=== PATIENT | male | born 1965 | race African-American/Black ===

== ENCOUNTER 2021-07-16 17:06 | Inpatient (IN) | payer OTHER ==
[2021-07-16] MEDS ORDERED: MAGNESIUM HYDROX 2400MG/30ML ORAL SUSPENSION 30 ML CUP PO PRN (20:43)
[2021-07-16] MEDS ORDERED: hydrOXYzine PAMOATE 25 MG CAPSULE (FP) PO PRN (20:43)
[2021-07-16] MEDS ORDERED: IBUPROFEN 400 MG TABLET (FP) PO PRN (20:43)
[2021-07-16] MEDS ORDERED: METHOCARBAMOL 500 MG TABLET PO PRN (20:43)
[2021-07-16] MEDS ORDERED: ONDANSETRON *ODT* 4 MG TABLET SL PRN (20:43)
[2021-07-16] MEDS ORDERED: MAGNESIUM CITRATE 300 ML BOTTLE PO PRN (20:43)
[2021-07-16] MEDS ORDERED: MENTHOL/PHENOL 1 EACH UD MM PRN (20:43)
[2021-07-16] MEDS ORDERED: DICYCLOMINE HCL 10 MG CAPSULE PO PRN (20:43)
[2021-07-16] MEDS ORDERED: BISMUTH SUBSALICYLATE 524 MG/30 ML PO PRN (20:43)
[2021-07-16] MEDS ORDERED: ACETAMINOPHEN 325 MG TABLET (FP) PO PRN ×2 (20:43)
[2021-07-16] MEDS ORDERED: guaiFENesin 200 MG/10 ML 10 ML UNIT-DOSE CUPS PO PRN (20:43)
[2021-07-16] MEDS ORDERED: P-EPHED 60MG/TRIPROLIDI 2.5MG TABLET PO PRN (20:43)
[2021-07-16] MEDS ORDERED: MAG HYDROX/AL HYDROX/SIMETH 30 ML UNIT-DOSE CUP PO PRN (20:43)
[2021-07-16 22:39] VITALS: BMI 41.5
[2021-07-17] MEDS ORDERED: INSULIN (NOVOLOG) ASPART 100 UNITS/ML 10ML VIAL SQ ONE (00:51)
[2021-07-17] MEDS: THIAMINE HCL 100 MG TABLET (FP) PO SCH ×2 (01:51→21:37)
[2021-07-17] MEDS: MELATONIN 5 MG TABLETS PO SCH ×2 (01:51→21:37)
[2021-07-17] MEDS ORDERED: PIOGLITAZONE HCL 15 MG TABLET PO SCH (07:00)
[2021-07-17] MEDS: INSULIN (NOVOLOG) ASPART 100 UNITS/ML 10ML VIAL SQ SCH ×4 (08:05→21:35)
[2021-07-17] MEDS: PRENATAL VITAMINS W/ FOLIC ACID TABLET (FP) PO SCH (10:19)
[2021-07-17 11:18] LABS: ALBUMIN 2.7 g/dl (3.4-5.0)
[2021-07-17 11:19] LABS: BLOOD UREA NITROGEN 9.4 mg/dL (7-18)
[2021-07-17 11:22] LABS: CREATININE 1.2 mg/dL (0.55-1.3)
[2021-07-17 11:24] LABS: BILIRUBIN,TOTAL 0.4 mg/dL (0.2-1)
[2021-07-17 11:34] LABS: HEMATOCRIT 34.1 % (35.4-49); HEMOGLOBIN 11.3 GM/dL (11.7-16.9); MCH 24.7 pg (25.7-33.7); MCHC 33.2 g/dl (32.0-35.9); MEAN CELL VOLUME 74.4 fl (80-96); PLATELET COUNT 196 10^3/uL (134-434); RBC 4.59 M/mm3 (4.00-5.60); RDW 15.7 % (11.9-15.9); WHITE BLOOD COUNT 3.7 K/mm3 (4.0-10.0)
[2021-07-17] MEDS ORDERED: INSULIN (NOVOLOG) ASPART 100 UNITS/ML 10ML VIAL ONE ×2 (17:15→21:35)
[2021-07-17 17:17] LABS: HIV INTERPRETATION NEGATIVE (NEGATIVE)
[2021-07-17] MEDS: SERTRALINE HCL 25 MG TABLET (FP) PO SCH (21:37)
[2021-07-17] MEDS ORDERED: POTASSIUM CHLORIDE TABS 20 MEQ TABLET.ER (FP) PO ONE (22:23)
[2021-07-18] MEDS: INSULIN (NOVOLOG) ASPART 100 UNITS/ML 10ML VIAL SQ SCH ×4 (06:30→21:10)
[2021-07-18] MEDS: PIOGLITAZONE HCL 15 MG PO SCH (06:31)
[2021-07-18] MEDS: PRENATAL VITAMINS W/ FOLIC ACID TABLET (FP) PO SCH (09:47)
[2021-07-18] MEDS: PATIENT'S OWN MEDICATION (NON-FORMULARY) (Dulaglutide [Trulicity] 0.75 MG/0.5 ML Pen.Injct SQ SCH (11:58)
[2021-07-18 12:23] LABS: BLOOD UREA NITROGEN 7.2 mg/dL (7-18)
[2021-07-18 12:24] LABS: BILIRUBIN,TOTAL 0.4 mg/dL (0.2-1)
[2021-07-18 12:25] LABS: ALBUMIN 2.7 g/dl (3.4-5.0); CALCIUM 9.2 mg/dL (8.5-10.1); CREATININE 1.1 mg/dL (0.55-1.3)
[2021-07-18] MEDS ORDERED: INSULIN SLIDING SCALE (NOVOLOG) 1 VIAL SQ ONE ×2 (16:51→21:10)
[2021-07-18] MEDS: SERTRALINE HCL 25 MG TABLET (FP) PO SCH (21:08)
[2021-07-18] MEDS: MELATONIN 5 MG TABLETS PO SCH (21:08)
[2021-07-18] MEDS: THIAMINE HCL 100 MG TABLET (FP) PO SCH (21:08)
[2021-07-19] MEDS: PIOGLITAZONE HCL 15 MG PO SCH (06:21)
[2021-07-19] MEDS: INSULIN (NOVOLOG) ASPART 100 UNITS/ML 10ML VIAL SQ SCH ×4 (06:21→21:35)
[2021-07-19] MEDS: PRENATAL VITAMINS W/ FOLIC ACID TABLET (FP) PO SCH (09:43)
[2021-07-19] MEDS ORDERED: INSULIN SLIDING SCALE (NOVOLOG) 1 VIAL SQ ONE (11:58)
[2021-07-19] MEDS: MELATONIN 5 MG TABLETS PO SCH (21:30)
[2021-07-19] MEDS: THIAMINE HCL 100 MG TABLET (FP) PO SCH (21:30)
[2021-07-19] MEDS: SERTRALINE HCL 25 MG TABLET (FP) PO SCH (21:31)
[2021-07-20] MEDS: PIOGLITAZONE HCL 15 MG PO SCH (06:17)
[2021-07-20] MEDS ORDERED: INSULIN (NOVOLOG) ASPART 100 UNITS/ML 10ML VIAL ONE ×2 (07:31→11:27)
[2021-07-20] MEDS: INSULIN (NOVOLOG) ASPART 100 UNITS/ML 10ML VIAL SQ SCH ×4 (07:51→21:48)
[2021-07-20] MEDS: PRENATAL VITAMINS W/ FOLIC ACID TABLET (FP) PO SCH (10:09)
[2021-07-20] MEDS: MELATONIN 5 MG TABLETS PO SCH (21:46)
[2021-07-20] MEDS: THIAMINE HCL 100 MG TABLET (FP) PO SCH (21:46)
[2021-07-20] MEDS: SERTRALINE HCL 25 MG TABLET (FP) PO SCH (21:46)
[2021-07-21] MEDS: INSULIN (NOVOLOG) ASPART 100 UNITS/ML 10ML VIAL SQ SCH ×4 (06:51→21:27)
[2021-07-21] MEDS: PIOGLITAZONE HCL 15 MG PO SCH (06:52)
[2021-07-21] MEDS ORDERED: INSULIN (NOVOLOG) ASPART 100 UNITS/ML 10ML VIAL ONE ×3 (07:23→22:27)
[2021-07-21] MEDS: PRENATAL VITAMINS W/ FOLIC ACID TABLET (FP) PO SCH (10:10)
[2021-07-21] MEDS: SERTRALINE HCL 25 MG TABLET (FP) PO SCH (21:27)
[2021-07-21] MEDS: MELATONIN 5 MG TABLETS PO SCH (21:27)
[2021-07-21] MEDS: THIAMINE HCL 100 MG TABLET (FP) PO SCH (21:27)
[2021-07-22] MEDS ORDERED: INSULIN (NOVOLOG) ASPART 100 UNITS/ML 10ML VIAL ONE ×3 (05:12→11:57)
[2021-07-22] MEDS: INSULIN (NOVOLOG) ASPART 100 UNITS/ML 10ML VIAL SQ SCH ×4 (06:29→21:01)
[2021-07-22] MEDS: PIOGLITAZONE HCL 15 MG PO SCH (06:30)
[2021-07-22] MEDS: PRENATAL VITAMINS W/ FOLIC ACID TABLET (FP) PO SCH (09:54)
[2021-07-22] MEDS: MELATONIN 5 MG TABLETS PO SCH (21:03)
[2021-07-22] MEDS: THIAMINE HCL 100 MG TABLET (FP) PO SCH (21:03)
[2021-07-22] MEDS: SERTRALINE HCL 25 MG TABLET (FP) PO SCH (21:03)
[2021-07-23] MEDS: INSULIN (NOVOLOG) ASPART 100 UNITS/ML 10ML VIAL SQ SCH ×4 (06:33→21:15)
[2021-07-23] MEDS: PIOGLITAZONE HCL 15 MG PO SCH (06:34)
[2021-07-23] MEDS: PRENATAL VITAMINS W/ FOLIC ACID TABLET (FP) PO SCH (10:07)
[2021-07-23] MEDS ORDERED: INSULIN (NOVOLOG) ASPART 100 UNITS/ML 10ML VIAL ONE (11:56)
[2021-07-23] MEDS: THIAMINE HCL 100 MG TABLET (FP) PO SCH (21:15)
[2021-07-23] MEDS: MELATONIN 5 MG TABLETS PO SCH (21:15)
[2021-07-23] MEDS: SERTRALINE HCL 25 MG TABLET (FP) PO SCH (21:16)
[2021-07-24] MEDS ORDERED: INSULIN (NOVOLOG) ASPART 100 UNITS/ML 10ML VIAL ONE ×2 (00:18→07:04)
[2021-07-24] MEDS: INSULIN (NOVOLOG) ASPART 100 UNITS/ML 10ML VIAL SQ SCH ×4 (06:59→21:16)
[2021-07-24] MEDS: PIOGLITAZONE HCL 15 MG PO SCH (07:00)
[2021-07-24] MEDS: PRENATAL VITAMINS W/ FOLIC ACID TABLET (FP) PO SCH (10:30)
[2021-07-24] MEDS: MELATONIN 5 MG TABLETS PO SCH (21:17)
[2021-07-24] MEDS: THIAMINE HCL 100 MG TABLET (FP) PO SCH (21:17)
[2021-07-24] MEDS: SERTRALINE HCL 25 MG TABLET (FP) PO SCH (21:18)
[2021-07-25] MEDS: PIOGLITAZONE HCL 15 MG PO SCH (06:44)
[2021-07-25] MEDS ORDERED: INSULIN (NOVOLOG) ASPART 100 UNITS/ML 10ML VIAL ONE ×2 (06:44→16:54)
[2021-07-25] MEDS: INSULIN (NOVOLOG) ASPART 100 UNITS/ML 10ML VIAL SQ SCH ×4 (07:35→21:49)
[2021-07-25] MEDS: PRENATAL VITAMINS W/ FOLIC ACID TABLET (FP) PO SCH (09:58)
[2021-07-25] MEDS: PATIENT'S OWN MEDICATION (NON-FORMULARY) (Dulaglutide [Trulicity] 0.75 MG/0.5 ML Pen.Injct SQ SCH (09:59)
[2021-07-25] MEDS: MELATONIN 5 MG TABLETS PO SCH (21:49)
[2021-07-25] MEDS: THIAMINE HCL 100 MG TABLET (FP) PO SCH (21:49)
[2021-07-25] MEDS ORDERED: SERTRALINE HCL 50 MG TABLET (FP) PO SCH (22:59)
[2021-07-25] MEDS: SERTRALINE HCL 25 MG TABLET (FP) PO SCH (23:11)
[2021-07-25] MEDS: SERTRALINE HCL 50 MG TABLET (FP) PO SCH (23:14)
[2021-07-26] MEDS ORDERED: INSULIN (NOVOLOG) ASPART 100 UNITS/ML 10ML VIAL ONE (07:02)
[2021-07-26] MEDS: PIOGLITAZONE HCL 15 MG PO SCH (07:03)
[2021-07-26] MEDS: INSULIN (NOVOLOG) ASPART 100 UNITS/ML 10ML VIAL SQ SCH ×4 (07:04→21:29)
[2021-07-26] MEDS: PRENATAL VITAMINS W/ FOLIC ACID TABLET (FP) PO SCH (10:35)
[2021-07-26] MEDS: THIAMINE HCL 100 MG TABLET (FP) PO SCH (21:31)
[2021-07-26] MEDS: MELATONIN 5 MG TABLETS PO SCH (21:31)
[2021-07-26] MEDS: SERTRALINE HCL 50 MG TABLET (FP) PO SCH (21:31)
[2021-07-27] MEDS ORDERED: INSULIN (NOVOLOG) ASPART 100 UNITS/ML 10ML VIAL ONE (06:35)
[2021-07-27] MEDS: INSULIN (NOVOLOG) ASPART 100 UNITS/ML 10ML VIAL SQ SCH ×4 (06:36→21:17)
[2021-07-27] MEDS: PIOGLITAZONE HCL 15 MG PO SCH (06:37)
[2021-07-27] MEDS: PRENATAL VITAMINS W/ FOLIC ACID TABLET (FP) PO SCH (10:21)
[2021-07-27] MEDS: THIAMINE HCL 100 MG TABLET (FP) PO SCH (21:16)
[2021-07-27] MEDS: SERTRALINE HCL 50 MG TABLET (FP) PO SCH (21:16)
[2021-07-27] MEDS: MELATONIN 5 MG TABLETS PO SCH (21:16)
[2021-07-28] MEDS: PIOGLITAZONE HCL 15 MG PO SCH (06:09)
[2021-07-28] MEDS: INSULIN (NOVOLOG) ASPART 100 UNITS/ML 10ML VIAL SQ SCH ×4 (07:41→21:24)
[2021-07-28] MEDS: PRENATAL VITAMINS W/ FOLIC ACID TABLET (FP) PO SCH (11:32)
[2021-07-28] MEDS ORDERED: INSULIN (NOVOLOG) ASPART 100 UNITS/ML 10ML VIAL ONE (12:30)
[2021-07-28] MEDS: MELATONIN 5 MG TABLETS PO SCH (21:20)
[2021-07-28] MEDS: THIAMINE HCL 100 MG TABLET (FP) PO SCH (21:21)
[2021-07-28] MEDS: SERTRALINE HCL 50 MG TABLET (FP) PO SCH (21:23)
[2021-07-29] MEDS: INSULIN (NOVOLOG) ASPART 100 UNITS/ML 10ML VIAL SQ SCH ×4 (06:58→21:05)
[2021-07-29] MEDS: PIOGLITAZONE HCL 15 MG PO SCH (08:26)
[2021-07-29] MEDS: PRENATAL VITAMINS W/ FOLIC ACID TABLET (FP) PO SCH (09:31)
[2021-07-29] MEDS: THIAMINE HCL 100 MG TABLET (FP) PO SCH (21:05)
[2021-07-29] MEDS: SERTRALINE HCL 50 MG TABLET (FP) PO SCH (21:06)
[2021-07-29] MEDS: MELATONIN 5 MG TABLETS PO SCH (21:07)
[2021-07-30] MEDS: PIOGLITAZONE HCL 15 MG PO SCH (06:12)
[2021-07-30] MEDS: INSULIN (NOVOLOG) ASPART 100 UNITS/ML 10ML VIAL SQ SCH ×4 (06:13→21:42)
[2021-07-30] MEDS: PRENATAL VITAMINS W/ FOLIC ACID TABLET (FP) PO SCH (09:53)
[2021-07-30 10:44] LABS: HEMATOCRIT 40.7 % (35.4-49); HEMOGLOBIN 12.9 GM/dL (11.7-16.9); MCH 24.2 pg (25.7-33.7); MCHC 31.6 g/dl (32.0-35.9); MEAN CELL VOLUME 76.6 fl (80-96); MEAN PLT VOLUME 8.3 fl (7.5-11.1); PLATELET COUNT 254 10^3/uL (134-434); RBC 5.31 M/mm3 (4.00-5.60); RDW 16.6 % (11.9-15.9); WHITE BLOOD COUNT 4.9 K/mm3 (4.0-10.0)
[2021-07-30 10:51] LABS: BLOOD UREA NITROGEN 17.5 mg/dL (7-18); CALCIUM 9.5 mg/dL (8.5-10.1)
[2021-07-30 10:55] LABS: BILIRUBIN,TOTAL 0.5 mg/dL (0.2-1); CREATININE 1.3 mg/dL (0.55-1.3); TOT PROT 7.5 g/dl (6.4-8.2)
[2021-07-30 10:59] LABS: ALBUMIN 3.4 g/dl (3.4-5.0)
[2021-07-30] MEDS: THIAMINE HCL 100 MG TABLET (FP) PO SCH (21:43)
[2021-07-30] MEDS: MELATONIN 5 MG TABLETS PO SCH (21:45)
[2021-07-30] MEDS: SERTRALINE HCL 50 MG TABLET (FP) PO SCH (21:48)
[2021-07-31] MEDS: INSULIN (NOVOLOG) ASPART 100 UNITS/ML 10ML VIAL SQ SCH ×4 (06:49→21:39)
[2021-07-31] MEDS: PIOGLITAZONE HCL 15 MG PO SCH (06:50)
[2021-07-31] MEDS ORDERED: INSULIN (NOVOLOG) ASPART 100 UNITS/ML 10ML VIAL ONE ×2 (07:02→13:57)
[2021-07-31] MEDS: PRENATAL VITAMINS W/ FOLIC ACID TABLET (FP) PO SCH (10:26)
[2021-07-31] MEDS: MELATONIN 5 MG TABLETS PO SCH (21:39)
[2021-07-31] MEDS: THIAMINE HCL 100 MG TABLET (FP) PO SCH (21:39)
[2021-07-31] MEDS: SERTRALINE HCL 50 MG TABLET (FP) PO SCH (21:40)
[2021-08-01] MEDS ORDERED: INSULIN (NOVOLOG) ASPART 100 UNITS/ML 10ML VIAL ONE (05:52)
[2021-08-01] MEDS: INSULIN (NOVOLOG) ASPART 100 UNITS/ML 10ML VIAL SQ SCH ×4 (06:08→21:36)
[2021-08-01] MEDS: PIOGLITAZONE HCL 15 MG PO SCH (06:08)
[2021-08-01] MEDS: PRENATAL VITAMINS W/ FOLIC ACID TABLET (FP) PO SCH (10:25)
[2021-08-01] MEDS: PATIENT'S OWN MEDICATION (NON-FORMULARY) (Dulaglutide [Trulicity] 0.75 MG/0.5 ML Pen.Injct SQ SCH (10:25)
[2021-08-01] MEDS: MELATONIN 5 MG TABLETS PO SCH (21:33)
[2021-08-01] MEDS: THIAMINE HCL 100 MG TABLET (FP) PO SCH (21:34)
[2021-08-01] MEDS: SERTRALINE HCL 50 MG TABLET (FP) PO SCH (21:34)
[2021-08-02] MEDS: INSULIN (NOVOLOG) ASPART 100 UNITS/ML 10ML VIAL SQ SCH ×4 (06:58→21:24)
[2021-08-02] MEDS ORDERED: INSULIN (NOVOLOG) ASPART 100 UNITS/ML 10ML VIAL ONE ×2 (06:58→12:08)
[2021-08-02] MEDS: PIOGLITAZONE HCL 15 MG PO SCH (06:59)
[2021-08-02] MEDS: PRENATAL VITAMINS W/ FOLIC ACID TABLET (FP) PO SCH (10:28)
[2021-08-02] MEDS: SERTRALINE HCL 50 MG TABLET (FP) PO SCH (21:25)
[2021-08-02] MEDS: THIAMINE HCL 100 MG TABLET (FP) PO SCH (21:25)
[2021-08-02] MEDS: MELATONIN 5 MG TABLETS PO SCH (21:27)
[2021-08-03] MEDS: PIOGLITAZONE HCL 15 MG PO SCH (06:33)
[2021-08-03] MEDS ORDERED: INSULIN (NOVOLOG) ASPART 100 UNITS/ML 10ML VIAL ONE ×2 (06:35→12:09)
[2021-08-03] MEDS: INSULIN (NOVOLOG) ASPART 100 UNITS/ML 10ML VIAL SQ SCH ×4 (06:37→21:31)
[2021-08-03] MEDS: PRENATAL VITAMINS W/ FOLIC ACID TABLET (FP) PO SCH (09:55)
[2021-08-03] MEDS: MELATONIN 5 MG TABLETS PO SCH (21:30)
[2021-08-03] MEDS: SERTRALINE HCL 50 MG TABLET (FP) PO SCH (21:31)
[2021-08-03] MEDS: THIAMINE HCL 100 MG TABLET (FP) PO SCH (21:31)
[2021-08-04] MEDS: INSULIN (NOVOLOG) ASPART 100 UNITS/ML 10ML VIAL SQ SCH ×4 (06:40→21:42)
[2021-08-04] MEDS: PIOGLITAZONE HCL 15 MG PO SCH (06:41)
[2021-08-04] MEDS: PRENATAL VITAMINS W/ FOLIC ACID TABLET (FP) PO SCH (10:04)
[2021-08-04] MEDS: MELATONIN 5 MG TABLETS PO SCH (21:42)
[2021-08-04] MEDS: SERTRALINE HCL 50 MG TABLET (FP) PO SCH (21:43)
[2021-08-04] MEDS: THIAMINE HCL 100 MG TABLET (FP) PO SCH (21:43)
[2021-08-05] MEDS: PIOGLITAZONE HCL 15 MG PO SCH (06:09)
[2021-08-05] MEDS: INSULIN (NOVOLOG) ASPART 100 UNITS/ML 10ML VIAL SQ SCH ×4 (06:09→21:23)
[2021-08-05] MEDS ORDERED: INSULIN (NOVOLOG) ASPART 100 UNITS/ML 10ML VIAL ONE (07:22)
[2021-08-05] MEDS: PRENATAL VITAMINS W/ FOLIC ACID TABLET (FP) PO SCH (10:13)
[2021-08-05] MEDS: SERTRALINE HCL 50 MG TABLET (FP) PO SCH (21:21)
[2021-08-05] MEDS: MELATONIN 5 MG TABLETS PO SCH (21:21)
[2021-08-05] MEDS: THIAMINE HCL 100 MG TABLET (FP) PO SCH (21:21)
[2021-08-06] MEDS: INSULIN (NOVOLOG) ASPART 100 UNITS/ML 10ML VIAL SQ SCH ×4 (06:38→21:28)
[2021-08-06] MEDS: PIOGLITAZONE HCL 15 MG PO SCH (06:39)
[2021-08-06] MEDS ORDERED: INSULIN (NOVOLOG) ASPART 100 UNITS/ML 10ML VIAL ONE ×3 (07:41→16:52)
[2021-08-06] MEDS: PRENATAL VITAMINS W/ FOLIC ACID TABLET (FP) PO SCH (10:10)
[2021-08-06] MEDS: SERTRALINE HCL 50 MG TABLET (FP) PO SCH (21:30)
[2021-08-06] MEDS: MELATONIN 5 MG TABLETS PO SCH (21:30)
[2021-08-06] MEDS: THIAMINE HCL 100 MG TABLET (FP) PO SCH (21:30)
[2021-08-07] MEDS ORDERED: INSULIN (NOVOLOG) ASPART 100 UNITS/ML 10ML VIAL ONE ×2 (03:12→06:40)
[2021-08-07] MEDS: INSULIN (NOVOLOG) ASPART 100 UNITS/ML 10ML VIAL SQ SCH (06:36)
[2021-08-07] MEDS: PIOGLITAZONE HCL 15 MG PO SCH (06:36)
[2021-08-07 07:12] VITALS: BP 132/80; PULSE 90; TEMP 97.9
== END 2021-08-07 09:45 | disposition home or self-care (01) | DRG 895 ==
LOC: YASAS 17:06 → Y6N 23:44 → Y3E 07-17 18:55 → Y3W 07-18 15:11 → Y5N 07-19 12:38
PROVIDERS: ADMIT Allergy & Immunology; ATTEND Allergy & Immunology
PROC: HZ42ZZZ Group Counseling for Substance Abuse Treatment, Cognitive-Behavioral (ICD-10-PCS; principal; 2021-07-16)
DX: F10.20 Alcohol dependence, uncomplicated (principal); F14.20 Cocaine dependence, uncomplicated; Z68.41 Body mass index [BMI] 40.0-44.9, adult; F32.A Depression, unspecified; J45.20 Mild intermittent asthma, uncomplicated; E66.9 Obesity, unspecified; E11.9 Type 2 diabetes mellitus without complications; Z79.4 Long term (current) use of insulin; Z87.891 Personal history of nicotine dependence; Z56.0 Unemployment, unspecified; Z59.00 Homelessness unspecified
CPT/HCPCS: 36415; 80053; 82962; 83036; 85027; 86780; 87389; C9803; U0003; U0005